=== PATIENT | male | born 1940 | race Caucasian/White ===

== ENCOUNTER 2018-02-12 10:30 | Inpatient (IN) | payer MEDICARE, BC ==
[2018-02-12] MEDS ORDERED: CEFTRIAXONE 1 GM (PREMIX) 1 GM/50 ML SOL IV SCH (11:00)
[2018-02-12 11:11] LABS: BASOPHILS % (AUTO) 0 % (0-3); EOSINOPHILS % (AUTO) 2 % (0-9); HEMATOCRIT 40 % (39-53); MEAN CORPUSCULAR HGB CONC 33.9 gm/dl (32.0-36.0); MEAN CORPUSCULAR VOLUME 93 fL (80-100); MONOCYTES % (AUTO) 12.6 % (0-12); NEUTROPHILS % (AUTO) 66.4 % (37-80)
[2018-02-12] MEDS ORDERED: PATIENT EDUCATION 1 MISC PRN (11:18)
[2018-02-12 11:21] LABS: CALCIUM 8.9 mg/dl (8.5-10.1); CREATININE 1.4 mg/dl (0.80-1.30); POTASSIUM 4.3 mMol/L (3.5-5.1)
[2018-02-12] MEDS ORDERED: CEFTRIAXONE 1 GM PDS ONE ×2 (11:34→23:21)
[2018-02-12] MEDS: CEFTRIAXONE 1 GM PDS 1 GM in SODIUM CHLORIDE 0.9% 50 ML 50 ML IV SCH ×2 (11:41→23:41)
[2018-02-12] MEDS: APAP/HYDROCODONE 325/5 TAB PO PRN ×2 (15:51→20:25)
[2018-02-12] MEDS: CIPRODEX LEFT EAR SCH ×2 (15:52→20:25)
[2018-02-12] MEDS: ATORVASTATIN 10 MG TAB PO SCH (20:25)
[2018-02-12] MEDS ORDERED: SODIUM CHLORIDE 0.9% 50 ML 50 ML IV ONE (23:22)
[2018-02-13 07:13] LABS: CALCIUM 8.5 mg/dl (8.5-10.1); CREATININE 1.39 mg/dl (0.80-1.30); POTASSIUM 4.1 mMol/L (3.5-5.1)
[2018-02-13 07:19] LABS: BASOPHILS % (AUTO) 1 % (0-3); EOSINOPHILS % (AUTO) 6 % (0-9); HEMATOCRIT 38 % (39-53); MEAN CORPUSCULAR HGB CONC 34.1 gm/dl (32.0-36.0); MEAN CORPUSCULAR VOLUME 91 fL (80-100); MONOCYTES % (AUTO) 13.9 % (0-12); NEUTROPHILS % (AUTO) 50.1 % (37-80)
[2018-02-13] MEDS: APAP/HYDROCODONE 325/5 TAB PO PRN (07:31)
[2018-02-13 07:51] VITALS: RESP 16
[2018-02-13] MEDS: ALLOPURINOL 100 MG TAB PO SCH (09:02)
[2018-02-13] MEDS: ATENOLOL 25 MG TAB PO SCH (09:02)
[2018-02-13] MEDS: CIPRODEX LEFT EAR SCH ×2 (09:03→21:05)
[2018-02-13] MEDS ORDERED: PHARMACOKINETICS 1 MISC PRN (09:53)
[2018-02-13] MEDS ORDERED: VANCOMYCIN HYDROCHLORIDE 500 MG PDS IV ONE ×2 (10:33→20:35)
[2018-02-13] MEDS ORDERED: SODIUM CHLORIDE 0.9% 250 ML 250 ML IV ONE ×2 (10:33→20:35)
[2018-02-13] MEDS: VANCOMYCIN HCL 500 MG PDS 1,000 MG in SODIUM CHLORIDE 0.9% 250 ML 250 ML IV SCH ×2 (10:40→21:05)
[2018-02-13] MEDS ORDERED: SODIUM CHLORIDE 0.9% 50 ML 50 ML IV ONE ×2 (11:42→23:24)
[2018-02-13] MEDS ORDERED: CEFTRIAXONE 1 GM PDS ONE ×2 (11:42→23:24)
[2018-02-13] MEDS: CEFTRIAXONE 1 GM PDS 1 GM in SODIUM CHLORIDE 0.9% 50 ML 50 ML IV SCH ×2 (12:12→23:34)
[2018-02-13] MEDS: SODIUM CHLORIDE 0.9% FLUSH 10 ML SOL IV SCH ×2 (12:13→21:06)
[2018-02-13] MEDS: ATORVASTATIN 10 MG TAB PO SCH (21:06)
[2018-02-14] MEDS: SODIUM CHLORIDE 0.9% FLUSH 10 ML SOL IV SCH ×5 (00:05→23:53)
[2018-02-14 07:29] LABS: CALCIUM 8.8 mg/dl (8.5-10.1); CREATININE 1.27 mg/dl (0.80-1.30); POTASSIUM 4.2 mMol/L (3.5-5.1)
[2018-02-14] MEDS ORDERED: SODIUM CHLORIDE 0.9% 250 ML 250 ML IV ONE ×2 (08:31→20:17)
[2018-02-14] MEDS ORDERED: VANCOMYCIN HYDROCHLORIDE 500 MG PDS IV ONE ×2 (08:31→20:17)
[2018-02-14] MEDS: CIPRODEX LEFT EAR SCH ×2 (08:39→20:53)
[2018-02-14] MEDS: ALLOPURINOL 100 MG TAB PO SCH (08:40)
[2018-02-14] MEDS: ATENOLOL 25 MG TAB PO SCH (08:40)
[2018-02-14] MEDS: VANCOMYCIN HCL 500 MG PDS 1,000 MG in SODIUM CHLORIDE 0.9% 250 ML 250 ML IV SCH ×2 (08:41→20:58)
[2018-02-14] MEDS: CEFTRIAXONE 1 GM PDS 1 GM in SODIUM CHLORIDE 0.9% 50 ML 50 ML IV SCH ×2 (12:45→23:53)
[2018-02-14] MEDS ORDERED: SODIUM CHLORIDE 0.9% 50 ML 50 ML IV ONE ×2 (12:46→23:23)
[2018-02-14] MEDS ORDERED: CEFTRIAXONE 1 GM PDS ONE ×2 (12:46→23:23)
[2018-02-14] MEDS: ATORVASTATIN 10 MG TAB PO SCH (20:53)
[2018-02-15 00:36] VITALS: O2SAT 96
[2018-02-15] MEDS: SODIUM CHLORIDE 0.9% FLUSH 10 ML SOL IV SCH ×2 (05:26→08:30)
[2018-02-15 07:54] VITALS: BP 129/76; PULSE 65; TEMP 97.7
[2018-02-15] MEDS ORDERED: VANCOMYCIN HYDROCHLORIDE 500 MG PDS IV ONE (08:24)
[2018-02-15] MEDS ORDERED: SODIUM CHLORIDE 0.9% 250 ML 250 ML IV ONE (08:24)
[2018-02-15] MEDS: VANCOMYCIN HCL 500 MG PDS 1,000 MG in SODIUM CHLORIDE 0.9% 250 ML 250 ML IV SCH (08:29)
[2018-02-15] MEDS: ALLOPURINOL 100 MG TAB PO SCH (08:30)
[2018-02-15] MEDS: ATENOLOL 25 MG TAB PO SCH (08:30)
[2018-02-15] MEDS: CIPRODEX LEFT EAR SCH (08:30)
[2018-02-15] MEDS ORDERED: CEFUROXIME(FRIDGE) 250MG/ 5 ML PDR PO SCH (09:00)
[2018-02-15] MEDS ORDERED: INFLUENZA HIGH DOSE VACCINE 0.5 ML SUS IM ONE (09:30)
== END 2018-02-15 10:25 | disposition home or self-care (01) | DRG 603 ==
LOC: ACUTE CARE 10:30
PROVIDERS: ADMIT Family Medicine; ATTEND Family Medicine
DX: L03.211 Cellulitis of face (principal)
CPT/HCPCS: 36415; 80048; 85025; J0696; J3370; A9270-GY